=== PATIENT | female | born 1955 | race Asian ===

== ENCOUNTER 2018-12-14 05:33 | Day surgery (SDC) | payer OTHER ==
[2018-12-14] MEDS ORDERED: CEFAZOLIN 2 GM/50 ML (PMX) 50 ML IVPB (06:00)
[2018-12-14] MEDS: SOD CHLORIDE 0.9% 1,000 ML IV (06:16)
[2018-12-14] MEDS ORDERED: ALBUTEROL 0.083% (NEB) 2.5 MG/3 ML AMP HHN (07:30)
[2018-12-14] MEDS ORDERED: DIPHENHYDRAMINE 50 MG INJ IV (07:30)
[2018-12-14] MEDS ORDERED: HYDROmorphONE 1 MG/5 ML IV SYRINGE IV (07:30)
[2018-12-14] MEDS ORDERED: FENTAnyl 50 MCG/ML VIAL IV ×3 (07:30)
[2018-12-14] MEDS ORDERED: FENTAnyl 50 MCG/ML VIAL (07:49)
[2018-12-14] MEDS ORDERED: ROPIVACAINE 0.5 % 30 ML VIAL (07:50)
[2018-12-14] MEDS ORDERED: SUCCINYLCHOLINE CHLORIDE 100 MG/5 ML SYG IV (08:28)
[2018-12-14] MEDS ORDERED: PROPOFOL 20 ML (08:28)
[2018-12-14] MEDS ORDERED: LIDOCAINE 100 MG SYRINGE (08:28)
[2018-12-14] MEDS ORDERED: SUGAMMADEX SODIUM 200 MG/2 ML VIAL IV (08:28)
[2018-12-14] MEDS ORDERED: CEFAZOLIN 1 GM INJ (08:28)
[2018-12-14] MEDS ORDERED: ROCURONIUM 50 MG INJ (08:28)
[2018-12-14] MEDS: HYDROmorphONE 1 MG/5 ML IV SYRINGE IV ×2 (08:46→08:55)
[2018-12-14] MEDS: ONDANSETRON 4 MG INJ IV (08:46)
[2018-12-14] MEDS: MEPERIDINE 25 MG INJ IV (08:59)
[2018-12-14] MEDS ORDERED: HYDROCODONE/APAP (5/325) TAB PO (09:00)
[2018-12-14] MEDS: LACTATED RINGER'S 500 ML IV (09:53)
[2018-12-14] MEDS: EPHEDrine 25 MG/5 ML SYG IV (09:55)
[2018-12-14] MEDS: METOCLOPRAMIDE 10 MG INJ IV (11:09)
== END 2018-12-14 11:22 | disposition home or self-care (01) ==
LOC: SDS 05:33
DX: K80.10 Calculus of gallbladder with chronic cholecystitis without obstruction (principal); I10 Essential (primary) hypertension
CPT/HCPCS: 47562; 88304